=== PATIENT | female | born 1990 | race Caucasian/White ===

== ENCOUNTER 2017-05-26 20:45 | Emergency (ER) | payer OTHER ==
[~2017-05-26] VITALS: Ht 152.4 cm; Wt 55.0 kg
[2017-05-26 20:51] VITALS: BP 113/72; PULSE 90; RESP 16; O2SAT 99
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
[2017-05-26] MEDS ORDERED: _HYDROcodone/APAP 5-325 mg Tablet PO PRN (21:50)
[2017-05-26] MEDS ORDERED: HYDROcodone-APAP 5-325 mg Tablet PO ONE (21:50)
[2017-05-26 23:18] VITALS: BP 122/76; PULSE 90; RESP 15; O2SAT 98
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
== END 2017-05-26 23:19 | disposition home or self-care (01) ==
LOC: SED 20:45
DX: S13.4XXA Sprain of ligaments of cervical spine, initial encounter (principal); S39.012A Strain of muscle, fascia and tendon of lower back, initial encounter; S29.012A Strain of muscle and tendon of back wall of thorax, initial encounter; V43.52XA Car driver injured in collision with other type car in traffic accident, initial encounter; Y93.9 Activity, unspecified; Y92.410 Unspecified street and highway as the place of occurrence of the external cause; Y99.9 Unspecified external cause status
CPT/HCPCS: 72072; 72100; 72125; 96372; 99284; J1885